=== PATIENT | male | born 1990 | race Caucasian/White ===

== ENCOUNTER 2019-11-14 17:48 | Emergency (ER) | payer BC, SELFPAY ==
[2019-11-14 17:58] VITALS: BP 159/72; PULSE 116; RESP 20; TEMP 36.8; O2SAT 98
--- NOTE | 2019-11-14 18:19 | ED.BACK ---
HPI - Back Pain/Injury General Chief Complaint: Back Pain/Injury Stated Complaint: hurt back Time Seen by Provider: 11/14/19 18:10 Source: patient Mode of arrival: ambulatory Limitations: no limitations History of Present Illness HPI Narrative: Des Isaac is a 29 yo male with no PMH who comes to express care with back pain that runs along the inferior trapezius; started after pulling dog and yesterday while he was on his way to work Related Data Home Medications Medication Instructions Recorded Confirmed buspirone 5 mg PO BID 11/14/19 11/14/19 sertraline 150 mg PO DAILY 11/14/19 11/14/19 Allergies Allergy/AdvReac Type Severity Reaction Status Date / Time No Known Allergies Allergy Verified 11/14/19 18:06 Review of Systems Review of Systems: Narrative: CONSTITUTIONAL: Denies fever, chills, sweats. EYES: Denies visual changes, redness, discharge. ENT: Denies rhinorrhea, congestion, sore throat, otalgia. CARDIOVASCULAR: Denies chest pain, palpitations, edema. RESPIRATORY: Denies dyspnea, wheezing, cough GASTROINTESTINAL: Denies abdominal pain, nausea, vomiting, diarrhea. GENITOURINARY: Denies dysuria, hematuria, abnormal discharge SKIN: Denies rash or itching. NEUROLOGIC: Denies numbness, or focal weakness. PSYCHIATRIC: Denies anxiety or depression. Neck pain on right midthoracic PMFSH Family History Family History Other Hypertension Social History Social History Smoking packs per day: 1 Smoking cigarettes per day: 20.0 Years smoked: 19 Smoking pack-years: 19.00 Smoking status: Current every day smoker Tobacco type: e-cigarettes/vaping Alcohol intake: current Comments At time of signature, I agree with nursing past medical, surgical, social and family history. There is no relevant family history pertinent to the presenting complaint. Experiencing pain, to follow-up with primary care physician about elevated blood pressure Exam Narrative: Exam Narrative: GENERAL: This is a well-nourished, well-developed patient, in moderate distress. HEAD: normocephalic, atraumatic. EYES: Sclera clear/white. Vision is grossly intact. EARS: External ears normal. Hearing grossly intact. NOSE: External nose normal without nasal discharge, nares without redness, no rhinorrhea. THROAT: Mucous membranes moist, NECK: Neck supple, non-tender CARDIOVASCULAR: Regular rate and rhythm without murmurs, gallops, or rubs. RESPIRATORY: Clear to auscultation. Breath sounds equal bilaterally. No wheezes, rales, or rhonchi. GASTROINTESTINAL: Abdomen soft, non-tender, SKIN: warm, intact with no suspicious lesions or rash, good texture and turgor. NEURO: awake, alert, and oriented to person, place and time. There were no obvious focal neurologic abnormalities. Steady gait EXTREMITIES: Normal range of motion. BACK:tender along anterior trapezius on the right; difficult to take deep breath; able to move arms laterally and overhead; without deformity Course Course Emergency Course: Started on baclofen and re-dosed ibuprofen x5 days (800 MG TID W FOOD) Vital Signs Vital signs: Vital Signs Temperature 98.2 F 11/14/19 17:58 Pulse Rate 116 H 11/14/19 17:58 Respiratory Rate 11/14/19 17:58 Blood Pressure 159/72 H 11/14/19 17:58 Pulse Oximetry 98 11/14/19 17:58 Temperature 98.2 F 11/14/19 17:58 Pulse Rate 116 H 11/14/19 17:58 Respiratory Rate 11/14/19 17:58 Blood Pressure 159/72 H 11/14/19 17:58 Pulse Oximetry 98 11/14/19 17:58 MDM - Back Pain/Injury Differential Diagnosis Differential diagnosis: Likely thoracic back pain and other (Radiculopathy) Discharge Plan Discharge Clinical Impression: Strain of right trapezius muscle Qualifiers: Encounter type: initial encounter Qualified Code(s): S46.811A - Strain of other muscles, fascia and tendons at shoulder and upper a
== END 2019-11-14 18:30 | disposition home or self-care (01) ==
PROVIDERS: Emergency Provider Nurse Practitioner
DX: S46.811A Strain of other muscles, fascia and tendons at shoulder and upper arm level, right arm, initial encounter (principal); F17.290 Nicotine dependence, other tobacco product, uncomplicated; X50.9XXA Other and unspecified overexertion or strenuous movements or postures, initial encounter
CPT/HCPCS: 99213; A4565; G0463